=== PATIENT | male | born 1960 | race Two or more races ===

== ENCOUNTER 2021-10-10 19:57 | Emergency (ER) | payer OTHER ==
[~2021-10-10] VITALS: Ht 175.3 cm; Wt 95.3 kg
[2021-10-10] MEDS ORDERED: TAMS0.4C PO (20:40)
[2021-10-10] MEDS ORDERED: PROSCAR5 MG PO (20:41)
[2021-10-11] MEDS ORDERED: CIPRO500 MG PO (07:17)
[2021-10-11] MEDS ORDERED: KETO10TA2 PO (07:17)
== END 2021-10-11 07:25 | disposition home or self-care (01) ==
LOC: ER 19:57
DX: N23 Unspecified renal colic (principal); N39.0 Urinary tract infection, site not specified; M25.562 Pain in left knee; Z03.818 Encounter for observation for suspected exposure to other biological agents ruled out

== ENCOUNTER 2021-12-19 15:41 | Emergency (ER) | payer OTHER ==
[~2021-12-19] VITALS: Ht 172.7 cm; Wt 86.2 kg
[~2021-12-19 15:41] MED LIST: CIPRO500 MG PO; KETO10TA2 PO; PROSCAR5 MG PO; TAMS0.4C PO
== END 2021-12-19 17:15 | disposition home or self-care (01) ==
LOC: ER 15:41
DX: G89.11 Acute pain due to trauma (principal); M25.562 Pain in left knee; R60.0 Localized edema; G44.319 Acute post-traumatic headache, not intractable; L03.031 Cellulitis of right toe